=== PATIENT | female | born 1955 | race Caucasian/White ===

== ENCOUNTER 2024-01-28 18:17 | Emergency (ER) | payer MEDICARE ==
[~2024-01-28] VITALS: Ht 167.6 cm; Wt 59.0 kg
[2024-01-28 19:19] LABS: BASO # 0.1 10*3/uL (0.0-0.1); BASO % 0.7 % (0.0-1.0); EOS # 0.5 10*3/uL (0.0-0.4); EOS % 5.6 % (1.0-4.0); HEMATOCRIT 37.1 % (37.0-47.0); LYMPH # 1.7 10*3/uL (1.3-4.4); LYMPH % 20.8 % (27.0-41.0); MEAN CELL VOLUME 94.4 fl (81.0-99.0); MEAN CORPUSCULAR HGB 29.8 pg (27.0-31.0); MEAN CORPUSCULAR HGB CONC 31.5 g/dl (33.0-37.0); MEAN PLATELET VOLUME 12.5 fl (9.6-12.3); MONO # 0.8 10*3/uL (0.1-1.0); MONO % 9.9 % (3.0-9.0); NEUT # 5.2 10*3/uL (2.3-7.9); NEUT % 62.6 % (47.0-73.0); PLATELET COUNT AUTOMATED 177 10*3/uL (130-400); RED BLOOD COUNT 3.93 10*6/uL (4.10-5.10); RED CELL DISTRI WIDTH 15.9 % (0-14.5); WHITE BLOOD COUNT 8.4 10*3/uL (4.8-10.8)
[2024-01-28 19:38] LABS: ALKALINE PHOSPHATASE 144 U/L (46-116); BUN 19 mg/dl (9-23); CHLORIDE 106 mmol/L (98-107); POTASSIUM 3.3 mmol/L (3.4-5.1); SGPT/ALT 25 U/L (5-49); TOTAL PROTEIN 5.3 gm/dL (6.0-8.0)
[2024-01-28 19:40] LABS: ETHYL ALCOHOL < 3.0 mg/dl (<3)
[2024-01-28] MEDS ORDERED: POTASSIUM CHLORIDE 20 MEQ TAB PO ONE (19:55)
[2024-01-28 20:23] LABS: BILIRUBIN Negative (Negative); BLOOD Negative (Negative); CLARITY Cloudy (Clear); COLOR Dark Yellow (Yellow); GLUCOSE Negative (Negative); KETONE Trace (Negative); LEUKO ESTERASE 2+ (Negative); NITRITE Negative (Negative); PH 5.5 (4.5-8.0); SPECIFIC GRAVITY 1.025 (1.001-1.030)
[2024-01-28 20:33] LABS: URINE AMPHETAMINES Negative (1000ng/ml); URINE BARBITURATES Negative (200ng/ml); URINE BENZODIAZEPINES Negative (200ng/ml); URINE CANNABINOIDS (THC) Negative (50ng/ml); URINE COCAINE Negative (300ng/ml); URINE METHADONE Negative (300ng/ml); URINE OPIATES Negative (300ng/ml); URINE PHENCYCLIDINE Negative (25ng/ml)
[2024-01-28 20:38] LABS: YEAST 2+
[2024-01-28 20:39] LABS: BACTERIA 1+
[2024-01-28] MEDS ORDERED: Fosfomycin Tromethamine 3 GM PDS PO ONE (20:45)
[2024-01-28] MEDS ORDERED: TENORMIN25 M1 PO (23:22)
[2024-01-28] MEDS ORDERED: CLONAZEPAM1 MG PO ×2 (23:23→23:24)
[2024-01-28] MEDS ORDERED: CLONAZEPAM0.5 M2 PO (23:24)
[2024-01-28] MEDS ORDERED: FLUOXETINE HCL60 MG PO (23:25)
[2024-01-28] MEDS ORDERED: INVEGA SUSTENN156 MG IM (23:26)
[2024-01-28] MEDS ORDERED: LACTULOSE10 GM/154 PO (23:28)
[2024-01-28] MEDS ORDERED: MELATONIN5 M1 PO (23:29)
[2024-01-28] MEDS ORDERED: MIRALAX POWDER17 G1 PO (23:31)
[2024-01-28] MEDS ORDERED: MYVITALIFE1 EACH PO (23:32)
[2024-01-28] MEDS ORDERED: COLCHICINE0.6 M2 PO (23:33)
[2024-01-28] MEDS ORDERED: PREVACID30 M2 PO (23:34)
[2024-01-28] MEDS ORDERED: REGLAN5 MG PO (23:35)
[2024-01-28] MEDS ORDERED: HYDROXYZINE HCL25 MG PO (23:38)
[2024-01-28] MEDS ORDERED: ARTHRITIS PAIN650 MG PO (23:39)
== END 2024-01-28 21:51 | disposition admitted as inpatient to this hospital (09) ==
LOC: ED 18:17
PROVIDERS: Nurse Practitioner Family
DX: N39.0 Urinary tract infection, site not specified (principal); E87.6 Hypokalemia; F29 Unspecified psychosis not due to a substance or known physiological condition; F31.9 Bipolar disorder, unspecified; F41.9 Anxiety disorder, unspecified; I10 Essential (primary) hypertension; M10.9 Gout, unspecified

== ENCOUNTER 2024-01-28 19:11 | Inpatient (IN) | payer MEDICARE ==
[~2024-01-28] VITALS: Ht 167.6 cm; Wt 55.8 kg
[2024-01-28 21:52] VITALS: BP 106/74
[2024-01-28] MEDS ORDERED: TENORMIN25 M1 PO (23:22)
[2024-01-28] MEDS ORDERED: CLONAZEPAM1 MG PO ×2 (23:23→23:24)
[2024-01-28] MEDS ORDERED: CLONAZEPAM0.5 M2 PO (23:24)
[2024-01-28] MEDS ORDERED: FLUOXETINE HCL60 MG PO (23:25)
[2024-01-28] MEDS ORDERED: INVEGA SUSTENN156 MG IM (23:26)
[2024-01-28] MEDS ORDERED: LACTULOSE10 GM/154 PO (23:28)
[2024-01-28] MEDS ORDERED: MELATONIN5 M1 PO (23:29)
[2024-01-28] MEDS ORDERED: MIRALAX POWDER17 G1 PO (23:31)
[2024-01-28] MEDS ORDERED: MYVITALIFE1 EACH PO (23:32)
[2024-01-28] MEDS ORDERED: COLCHICINE0.6 M2 PO (23:33)
[2024-01-28] MEDS ORDERED: PREVACID30 M2 PO (23:34)
[2024-01-28] MEDS ORDERED: REGLAN5 MG PO (23:35)
[2024-01-28] MEDS ORDERED: HYDROXYZINE HCL25 MG PO (23:38)
[2024-01-28] MEDS ORDERED: ARTHRITIS PAIN650 MG PO (23:39)
[2024-01-28] MEDS ORDERED: PALIPERIDONE PALMITATE 156 MG INJECTION IM SCH (23:45)
[2024-01-28] MEDS ORDERED: hydrOXYzine pamoate 25 MG CAP PO PRN (23:50)
[2024-01-29] MEDS ORDERED: MG-AL HYDROXIDE/SIMETICONE 30 ML UDC PO PRN (00:05)
[2024-01-29] MEDS ORDERED: Menthol/Zinc Oxide 4 GM THIN T PRN (00:05)
[2024-01-29] MEDS ORDERED: Magnesium Hydroxide 30 ML UDC PO PRN (00:05)
[2024-01-29] MEDS ORDERED: ACETAMINOPHEN 325 MG TAB PO PRN (00:05)
[2024-01-29] MEDS ORDERED: LORazepam 1 MG TAB PO PRN (01:45)
[2024-01-29] MEDS ORDERED: Ziprasidone Mesylate 20 MG VIAL IM PRN (01:45)
[2024-01-29] MEDS ORDERED: Water, Sterile 10 ML VIAL IM PRN (01:45)
[2024-01-29] MEDS ORDERED: Pantoprazole Sodium 40 MG TAB PO SCH (06:00)
[2024-01-29] MEDS ORDERED: Polyethylene Glycol 3350 17 GM PACKET PO SCH (09:00)
[2024-01-29] MEDS ORDERED: COLCHICINE 0.6 MG TAB PO SCH (09:00)
[2024-01-29] MEDS ORDERED: RISPERIDONE 0.5 MG TAB PO SCH (09:00)
[2024-01-29] MEDS ORDERED: LACTULOSE 20 GM/30 ML UDC PO SCH (09:00)
[2024-01-29] MEDS ORDERED: CEFDINIR 300 MG CAP PO SCH (09:00)
[2024-01-29] MEDS ORDERED: clonAZEPAM 1 MG TAB PO SCH ×3 (09:00→21:00)
[2024-01-29] MEDS ORDERED: clonAZEPAM 0.5 MG TAB PO SCH (11:00)
[2024-01-29 20:00] VITALS: BP 121/74
[2024-01-29] MEDS ORDERED: Fluoxetine Hydrochloride 20 MG CAP PO SCH (21:00)
[2024-01-29] MEDS ORDERED: ATENOLOL 25 MG TAB PO SCH (21:00)
[2024-01-30 06:44] LABS: BASO # 0.1 10*3/uL (0.0-0.1); BASO % 0.7 % (0.0-1.0); EOS # 0.5 10*3/uL (0.0-0.4); EOS % 6.1 % (1.0-4.0); HEMATOCRIT 37.6 % (37.0-47.0); LYMPH # 1.1 10*3/uL (1.3-4.4); LYMPH % 13.8 % (27.0-41.0); MEAN CELL VOLUME 93.8 fl (81.0-99.0); MEAN CORPUSCULAR HGB 29.7 pg (27.0-31.0); MEAN CORPUSCULAR HGB CONC 31.6 g/dl (33.0-37.0); MEAN PLATELET VOLUME 12.2 fl (9.6-12.3); MONO # 0.5 10*3/uL (0.1-1.0); MONO % 6.1 % (3.0-9.0); NEUT % 73.1 % (47.0-73.0); PLATELET COUNT AUTOMATED 197 10*3/uL (130-400); RED BLOOD COUNT 4.01 10*6/uL (4.10-5.10); RED CELL DISTRI WIDTH 15.9 % (0-14.5); WHITE BLOOD COUNT 8.2 10*3/uL (4.8-10.8)
[2024-01-30 07:24] LABS: ALKALINE PHOSPHATASE 122 U/L (46-116); BUN 12 mg/dl (9-23); CHLORIDE 106 mmol/L (98-107); CHOLESTEROL 85 mg/dL (<200); LDL CHOLESTEROL 39 mg/dL (9-159); SGPT/ALT 22 U/L (5-49); TRIGLYCERIDES 63 mg/dl (<150)
[2024-01-30 08:30] VITALS: BP 92/74
[2024-01-30 20:00] VITALS: BP 105/54
[2024-01-31 08:35] VITALS: BP 90/56
[2024-01-31] MEDS ORDERED: clonAZEPAM 1 MG TAB PO SCH (13:00)
[2024-01-31 20:00] VITALS: BP 108/74
[2024-01-31] MEDS ORDERED: clomiPRAMINE Hydrochloride 25 MG CAP PO SCH (21:00)
[2024-01-31] MEDS ORDERED: GUAIFENESIN 600 MG TAB ER PO SCH (21:00)
[2024-02-01 07:47] VITALS: BP 98/66
[2024-02-01 19:08] VITALS: BP 91/63
[2024-02-01 20:30] VITALS: BP 100/64
[2024-02-01] MEDS ORDERED: clomiPRAMINE Hydrochloride 25 MG CAP PO SCH (21:00)
[2024-02-02 07:47] VITALS: BP 76/52
[2024-02-02] MEDS ORDERED: SODIUM CHLORIDE 0.9% 1,000 ML IV SCH (07:55)
[2024-02-02 20:00] VITALS: BP 96/64
[2024-02-03 08:00] VITALS: BP 102/64
[2024-02-03 20:00] VITALS: BP 110/60
[2024-02-03] MEDS ORDERED: clomiPRAMINE Hydrochloride 25 MG CAP PO SCH (21:00)
[2024-02-04 07:32] VITALS: BP 102/68
[2024-02-04 07:53] LABS: BASO % 0.4 % (0.0-1.0); EOS # 0.4 10*3/uL (0.0-0.4); EOS % 5.7 % (1.0-4.0); HEMATOCRIT 31.2 % (37.0-47.0); LYMPH # 0.9 10*3/uL (1.3-4.4); LYMPH % 12.7 % (27.0-41.0); MEAN CORPUSCULAR HGB 30.4 pg (27.0-31.0); MONO # 0.5 10*3/uL (0.1-1.0); MONO % 6.6 % (3.0-9.0); NEUT # 5.4 10*3/uL (2.3-7.9); NEUT % 73.2 % (47.0-73.0); PLATELET COUNT AUTOMATED 172 10*3/uL (130-400); RED BLOOD COUNT 3.39 10*6/uL (4.10-5.10); RED CELL DISTRI WIDTH 15.8 % (0-14.5); WHITE BLOOD COUNT 7.3 10*3/uL (4.8-10.8)
[2024-02-04 08:29] LABS: ALKALINE PHOSPHATASE 107 U/L (46-116); BUN 17 mg/dl (9-23); CHLORIDE 104 mmol/L (98-107); POTASSIUM 4.3 mmol/L (3.4-5.1); SGPT/ALT 23 U/L (5-49); TOTAL PROTEIN 4.7 gm/dL (6.0-8.0)
[2024-02-04] MEDS ORDERED: ALGINATE DRESSING/CME-CELL 4X4 1 EACH BANDAGE T ONE (17:50)
[2024-02-04] MEDS ORDERED: FOAM BANDAGE 5X5 T ONE (17:50)
[2024-02-04 20:00] VITALS: BP 94/60
[2024-02-05 08:00] VITALS: BP 116/51
[2024-02-05] MEDS ORDERED: LORazepam 1 MG TAB PO PRN (09:30)
[2024-02-05 20:00] VITALS: BP 93/50
[2024-02-06 07:55] VITALS: BP 97/54
[2024-02-06] MEDS ORDERED: SODIUM CHLORIDE 0.9% 1,000 ML IV ONE (09:20)
[2024-02-06 20:00] VITALS: BP 128/77
[2024-02-07 07:53] VITALS: BP 113/54
[2024-02-07 19:13] VITALS: BP 121/72
[2024-02-07] MEDS ORDERED: RISPERIDONE 0.5 MG TAB PO SCH (21:00)
[2024-02-08 07:39] VITALS: BP 99/58
[2024-02-08] MEDS ORDERED: BARIUM SULFATE 96% 176 GM BOT PO ONE ×2 (09:30→10:55)
[2024-02-08] MEDS ORDERED: BARIUM SULFATE 98% 340 GM BOT PO ONE (10:00)
[2024-02-08] MEDS ORDERED: FOAM BANDAGE 5X5 T ONE (15:23)
[2024-02-08 19:23] VITALS: BP 113/79
[2024-02-08] MEDS ORDERED: clomiPRAMINE Hydrochloride 25 MG CAP PO SCH (21:00)
[2024-02-08 22:05] LABS: TOTAL (CLO+NORCLO) 270 ng/mL (220-500)
[2024-02-09 07:48] VITALS: BP 126/66
[2024-02-09 08:42] LABS: BASO % 0.7 % (0.0-1.0); EOS # 0.3 10*3/uL (0.0-0.4); EOS % 4.4 % (1.0-4.0); HEMATOCRIT 37.1 % (37.0-47.0); LYMPH % 16.7 % (27.0-41.0); MEAN CELL VOLUME 91.8 fl (81.0-99.0); MEAN CORPUSCULAR HGB 30.2 pg (27.0-31.0); MEAN CORPUSCULAR HGB CONC 32.9 g/dl (33.0-37.0); MEAN PLATELET VOLUME 11.4 fl (9.6-12.3); MONO # 0.2 10*3/uL (0.1-1.0); MONO % 3.6 % (3.0-9.0); NEUT # 4.4 10*3/uL (2.3-7.9); NEUT % 74.3 % (47.0-73.0); PLATELET COUNT AUTOMATED 232 10*3/uL (130-400); RED BLOOD COUNT 4.04 10*6/uL (4.10-5.10); RED CELL DISTRI WIDTH 15.8 % (0-14.5); WHITE BLOOD COUNT 5.9 10*3/uL (4.8-10.8)
[2024-02-09] MEDS ORDERED: RISPERIDONE 0.5 MG TAB PO SCH (09:00)
[2024-02-09 09:17] LABS: ALKALINE PHOSPHATASE 128 U/L (46-116); BUN 16 mg/dl (9-23); CHLORIDE 102 mmol/L (98-107); POTASSIUM 4.1 mmol/L (3.4-5.1); SGPT/ALT 24 U/L (5-49); TOTAL PROTEIN 5.9 gm/dL (6.0-8.0)
[2024-02-09] MEDS ORDERED: SODIUM CHLORIDE 0.9% 1,000 ML IV ONE (11:35)
[2024-02-09] MEDS ORDERED: Midodrine Hydrochloride 5 MG TAB PO SCH (12:00)
[2024-02-09 20:00] VITALS: BP 99/66
[2024-02-09] MEDS ORDERED: clomiPRAMINE Hydrochloride 25 MG CAP PO SCH (21:00)
[2024-02-10 07:48] VITALS: BP 107/78
[2024-02-10 20:00] VITALS: BP 115/71
[2024-02-10] MEDS ORDERED: clomiPRAMINE Hydrochloride 25 MG CAP PO SCH (21:00)
[2024-02-11 08:00] VITALS: BP 104/52
[2024-02-11] MEDS ORDERED: FOAM BANDAGE 4X4 T ONE (17:41)
[2024-02-11 20:00] VITALS: BP 96/52
[2024-02-12 08:00] VITALS: BP 162/67
[2024-02-12] MEDS ORDERED: FOAM BANDAGE 4X4 T ONE (09:15)
[2024-02-12] MEDS ORDERED: ALGINATE DRESSING/CME-CELL 4X4 1 EACH BANDAGE T ONE (09:15)
[2024-02-12] MEDS ORDERED: LORazepam 1 MG TAB PO PRN (19:40)
[2024-02-12 20:00] VITALS: BP 113/91
[2024-02-13 08:00] VITALS: BP 101/48
[2024-02-13] MEDS ORDERED: FOAM BANDAGE 4X4 T ONE (14:35)
[2024-02-13 20:00] VITALS: BP 131/62
[2024-02-13] MEDS ORDERED: LORazepam 0.5 MG TAB PO SCH (21:00)
[2024-02-14 06:56] LABS: BASO % 0.3 % (0.0-1.0); EOS # 0.4 10*3/uL (0.0-0.4); HEMATOCRIT 33.3 % (37.0-47.0); LYMPH # 0.8 10*3/uL (1.3-4.4); LYMPH % 12.9 % (27.0-41.0); MEAN CELL VOLUME 92.2 fl (81.0-99.0); MEAN CORPUSCULAR HGB CONC 33.6 g/dl (33.0-37.0); MEAN PLATELET VOLUME 11.1 fl (9.6-12.3); MONO # 0.6 10*3/uL (0.1-1.0); MONO % 9.4 % (3.0-9.0); NEUT # 4.2 10*3/uL (2.3-7.9); NEUT % 71.1 % (47.0-73.0); PLATELET COUNT AUTOMATED 190 10*3/uL (130-400); RED BLOOD COUNT 3.61 10*6/uL (4.10-5.10); RED CELL DISTRI WIDTH 15.6 % (0-14.5)
[2024-02-14 07:23] LABS: ALKALINE PHOSPHATASE 103 U/L (46-116); BUN 11 mg/dl (9-23); CHLORIDE 103 mmol/L (98-107); POTASSIUM 3.9 mmol/L (3.4-5.1); SGPT/ALT 23 U/L (5-49); TOTAL PROTEIN 5.2 gm/dL (6.0-8.0)
[2024-02-14 08:00] VITALS: BP 101/72
[2024-02-14] MEDS ORDERED: CLOMIPRAMINE HC25 MG PO (09:44)
[2024-02-14] MEDS ORDERED: INVEGA SUSTENN156 MG IM (09:44)
[2024-02-14] MEDS ORDERED: RISPERIDONE0.5 MG PO (09:44)
[2024-02-14] MEDS ORDERED: CLONAZEPAM1 MG PO (09:55)
[2024-02-14] MEDS ORDERED: clonAZEPAM 1 MG TAB PO SCH (13:00)
[2024-02-14] MEDS ORDERED: FOAM BANDAGE 4X4 T ONE (15:05)
[2024-02-14] MEDS ORDERED: MIDODRINE HCL5 M1 PO (15:36)
[2024-02-14 20:00] VITALS: BP 111/69
[2024-02-15 07:50] VITALS: BP 82/53
[2024-02-15 11:10] VITALS: BP 102/70
[2024-02-23] MEDS ORDERED: PALIPERIDONE PALMITATE 156 MG INJECTION IM SCH (09:00)
== END 2024-02-15 13:31 | DRG 885 ==
LOC: 3N 19:11
PROVIDERS: Nurse Practitioner; ADMIT Psychiatry & Neurology Psychiatry; ATTEND Psychiatry & Neurology Psychiatry
PROC: GZHZZZZ Group Psychotherapy (ICD-10-PCS; 2024-01-28)
PROC: GZ51ZZZ Individual Psychotherapy, Behavioral (ICD-10-PCS; 2024-01-28)
PROC: BD1BYZZ Fluoroscopy of Mouth/Oropharynx using Other Contrast (ICD-10-PCS; 2024-02-08)
PROC: 0HBRXZZ Excision of Toe Nail, External Approach (ICD-10-PCS; principal; 2024-02-11)
PROC: 0HBRXZZ Excision of Toe Nail, External Approach (ICD-10-PCS; 2024-02-11)
PROC: 0HBRXZZ Excision of Toe Nail, External Approach (ICD-10-PCS; 2024-02-11)
PROC: 0HBRXZZ Excision of Toe Nail, External Approach (ICD-10-PCS; 2024-02-11)
PROC: 0HBRXZZ Excision of Toe Nail, External Approach (ICD-10-PCS; 2024-02-11)
PROC: 0HBRXZZ Excision of Toe Nail, External Approach (ICD-10-PCS; 2024-02-11)
PROC: 0HBRXZZ Excision of Toe Nail, External Approach (ICD-10-PCS; 2024-02-11)
PROC: 0HBRXZZ Excision of Toe Nail, External Approach (ICD-10-PCS; 2024-02-11)
PROC: 0HBRXZZ Excision of Toe Nail, External Approach (ICD-10-PCS; 2024-02-11)
PROC: 0HBRXZZ Excision of Toe Nail, External Approach (ICD-10-PCS; 2024-02-11)
DX: F25.0 Schizoaffective disorder, bipolar type (principal); E43 Unspecified severe protein-calorie malnutrition; F63.81 Intermittent explosive disorder; N30.00 Acute cystitis without hematuria; Z68.1 Body mass index [BMI] 19.9 or less, adult; F41.1 Generalized anxiety disorder; E87.6 Hypokalemia; L60.3 Nail dystrophy; K21.9 Gastro-esophageal reflux disease without esophagitis; L89.150 Pressure ulcer of sacral region, unstageable; D64.9 Anemia, unspecified; I10 Essential (primary) hypertension; I95.1 Orthostatic hypotension; Z90.710 Acquired absence of both cervix and uterus; Z87.891 Personal history of nicotine dependence; Z88.0 Allergy status to penicillin; Z82.49 Family history of ischemic heart disease and other diseases of the circulatory system